=== PATIENT | female | born 1985 | race Caucasian/White ===

== ENCOUNTER 2017-02-25 20:38 | Observation (INO) | payer MEDICAID ==
[~2017-02-25] VITALS: Ht 160 cm; Wt 112.7 kg
[~2017-02-25 20:38] MED LIST: PREN1TAB80 PO
[2017-02-25] MEDS ORDERED: BUPIVACAINE HCL/PF 0.25% 10 ML VIAL INJ ONE (23:15)
[2017-02-26] MEDS ORDERED: RINGERS SOLUTION,LACTATED 1,000 ML IV ONE (01:45)
[2017-02-26] MEDS ORDERED: ACETAMINOPHEN 325 MG TABLET PO ONE (01:45)
[2017-02-26 02:22] VITALS: BP 121/81
== END 2017-02-26 02:55 | disposition home or self-care (01) ==
LOC: EMS 20:39 → 4S 02-26 00:22 → INTOOBSV 02-26 00:38 → 4S 02-26 00:38
PROVIDERS: ADMIT Obstetrics & Gynecology; ATTEND Obstetrics & Gynecology
DX: O26.893 Other specified pregnancy related conditions, third trimester (principal); K08.89 Other specified disorders of teeth and supporting structures; Z3A.37 37 weeks gestation of pregnancy
CPT/HCPCS: 59025; 99285; G0378; J3490; J7120; 96360